=== PATIENT | female | born 1990 | race Caucasian/White ===

== ENCOUNTER 2016-07-16 11:09 | Emergency (ER) | payer OTHER ==
[~2016-07-16] VITALS: Ht 175.3 cm; Wt 55.5 kg
[~2016-07-16 11:09] MED LIST: Docusate Sodium PO; FERR-74 PO; Hydrocodone/Acetaminophen PO; IBUP-1827 PO; Ibuprofen PO; MISO200T VAGINAL
[2016-07-16 11:24] VITALS: BP 107/73; PULSE 68; RESP 16; O2SAT 98
[2016-07-16] MEDS ORDERED: CITA10TA14 PO (11:28)
[2016-07-16] MEDS ORDERED: PREN-12 PO (11:28)
--- NOTE | 2016-07-16 11:57 | ED.REPORT ---
HPI-Headache Date of Service Jul 16, 2016 ED Provider: Doc,Ed MD History of Present Illness: blurry vision that comes and goes. blood pressure was low did not feel like she was going to pass out. checked at 1045. headache this am. off and on. [facility] is primary care. no vomiting. ate last night. 09/13 usually takes ibuprofen took 2 at 1030. blurriness last about 45 minutes, more on the left, feels it was split in the middle, noticed when reading, could not see the letters to read. no hx of ms. no stumbling or falls lately. Nursing Notes Stated Complaint: LOW BLOOD PRESSURE/HEADACHE Chief Complaint: Headache Nursing Notes Reviewed: Yes Allergies: Coded Allergies: Penicillins (Verified Allergy, Intermediate, rash, 12/14/15) had med once as child amoxicillin (Verified Allergy, Intermediate, rash, 07/16/16) Scheduled Citalopram Hydrobromide (Celexa) 10 Mg Tablet 10 MG PO DAILY Vit W-Ca,Fe,FA(<1 mg) ( Formula) 1 Each Tablet 1 EACH PO DAILY General Time Seen by MD: 11:56 Chief Complaint Headache Hx Obtained From: Patient Sudden in Onset?: No Past Medical History Past Medical History Reports: Asthma (last used albuterol a few months ago) Past Surgical History None reported Smoking History Never Smoker Social History Alcohol Use: "Social" Drug Use: Denies drug use Occupation living with parents, in the middle of a divorce 07/16/2016. Work for the school district Ambulatory Status Independent Review of Systems Basic Review of Systems Respiratory: No shortness of breath, No cough, No wheeze Hematologic: No bleeding, No bruising Allergy / Immune: No allergy Physical Exam Initial Vital Signs Vital Signs (First) Date Time Temp Pulse Resp B/P Pulse Ox O2 Delivery O2 Flow Rate FiO2 07/16/16 11:24 36.4 68 16 107/73 98 Room Air Initial VS: Reviewed, Vital signs normal ENT: Mucous membranes moist, Conjunctiva normal, No scleral icterus Back: No CVA tenderness Psychiatric: Mood/affect normal, Behavior normal, Normal thought content General/Constitutional: Awake, Alert, No acute distress, Well appearing, Well developed, Well hydrated, Well nourished, Cooperative, Not toxic appearing Head / Eyes: Atraumatic, Normocephalic, PERRL, EOMI, No nystagmus, No periorbital redness, Visual acuity NL pressures are at 17 Neck: Atraumatic, Supple, No meningismus, Full range of motion Neurologic: Oriented X3, Speech NL, No motor deficits, No sensory deficits, CN II - XII intact, Reflexes equal bilat, Cerebellar NL, Memory NL, Gait NL Respiratory / Chest: Atraumatic, Breath sounds NL, Breath sounds = bilat, No respiratory distress Cardiovascular: Heart rate NL, Regular rhythm, Heart sounds NL, No gallop Abdomen: Atraumatic, Soft, Non-tender, McBurney's non-tender Interpretation & Diagnostics Lab Results Interpretation Result Diagram: 07/16/16 1235 07/16/16 1235 Test 07/16/16 12:35 07/16/16 14:00 White Blood Count 4.1th/mm3 (3.8-10.1) Red Blood Count 3.70mil/mm3 (3.90-5.20) Hemoglobin 11.5g/dL (12.0-15.6) Hematocrit 36.0% (35.0-46.0) Mean Corpuscular Volume 97.3fL (81-100) Mean Corpuscular Hemoglobin 31.1pg (27.0-35.0) Mean Corpuscular Hemoglobin Concent 31.9% (32.0-37.0) Red Cell Distribution Width 12.7% (12.3-15.4) Platelet Count 200bil/L (150-400) Neutrophils (%) (Auto) 43.1% (40-74) Lymphocytes (%) (Auto) 43.2% (14-46) Monocytes (%) (Auto) 8.8% (4-12) Eosinophils (%) (Auto) 4.4% (0-5) Basophils (%) (Auto) 0.5% (0-3) Sodium Level 140mEq/L (134-144) Potassium Level 4.1mEq/L (3.5-5.2) Chloride Level 101mEq/L (97-108) Carbon Dioxide Level 26mmol/L (18-29) Blood Urea Nitrogen 9mg/dL (6-20) Creatinine 0.56mg/dL (0.57-1.00) Estimat Glomerular Filtration Rate 185mL/min (>59) Glucose Level 87mg/dL (60-99) Calcium Level 9.2mg/dL (8.5-10.1) Total Bilirubin 0.5mg/dL (0.0-1.2) Aspartate Amino Transf (AST/SGOT) 23U/L (0-50) Alanine Aminotransferase (ALT/SGPT) 20U/L (0-32) Alkaline Phosphatase 42U/L (25-150) Total Protein 6.8g/dL (6.4-8.4) Albumin 4.3g/dL (3.4-5.0) Hold Urine Received (Received) CT Head Interpretation PROCEDURE: CT BRAIN WITHOUT CONTRAST ([id number]) INDICATIONS: blurry vision TECHNIQUE: Noncontrast 4.5 mm thick angled axial sections acquired from the foramen magnum to the vertex, with coronal reformats. COMPARISON: None. FINDINGS: Image quality: Excellent. CSF spaces: Basal cisterns are patent. No extra-axial fluid collections. Ventricles are normal in size and shape. Brain: No midline shift. No intracranial masses or hemorrhage. Terrazas-white matter interface is normal. Skull and face: Calvarium and visualized facial bones are intact, without suspicious lesions. Sinuses: Visualized sinuses and mastoids are clear. IMPRESSION: No acute intracranial findings. Dictated by: Vicky Hoffman M.D. on 07/16/2016 at 12:36 Re-Eval/Medical Decision Med Decision/Clinical Course 26 year old female present for headache associated with 2 episodes of blurry vision which has resolved. Visual acuity is 20/16, pressures are at 17. CT is normal. patient has no hx of MS and no problems with gait. patient does not have diabetes at this time but does have a family hx of DM. No evidence of dissection at this time. Patient with good relief of her pain with toradol. discussed differential and encouraged follow up Discharge & Departure Impression: Primary Impression: Headache Headache type: tension-type Additional Impression: Blurry vision Disposition: Home Patient Instructions: Acute Headache (ED) Additional Instructions: Your labs are all normal. The head CT is normal. The pain has decreased with toradol. Your visual acuity is normal at this time. The pressure is normal. Please make an appointment with ophthalmology to have a more complete eye exam conducted. You also need to see Dr. Sanchez. The causes for blurry vision is very wide from multiple sclerosis to an ocular migraine. The causes need to be ruled out. Referrals: Amelie Sanchez MD (PCP) EDSupervising Provider for [facility]: Cody Gao MD copies to: Amelie Sanchez MD, Sue ARNP Jul 16, 2016 11:57
[2016-07-16] MEDS ORDERED: 0.9% Sodium Chloride 1,000 ML IV ONE (12:10)
[2016-07-16] MEDS ORDERED: Dexamethasone Inj 10 MG in 0.9% Sodium Chloride-Pha MIX 50 ML IV ONE (12:10)
--- NOTE | 2016-07-16 12:38 | DRSVH ---
PROCEDURE: CT BRAIN WITHOUT CONTRAST ([id number]) INDICATIONS: blurry vision TECHNIQUE: Noncontrast 4.5 mm thick angled axial sections acquired from the foramen magnum to the vertex, with c oronal reformats. COMPARISON: None. FINDINGS: Image quality: Excellent. CSF spaces: Basal cisterns are patent. No extra-axial fluid collections. Ventricles are normal in size and shape. Brain: No midline shift. No intracranial masses or hemorrhage. Terrazas-white matter interface is norm al. Skull and face: Calvarium and visualized facial bones are intact, without suspicious lesions. Sinuses: Visualized sinuses and mastoids are clear. IMPRESSION: No acute intracranial findings. Dictated by: Vicky Hoffman M.D. on 07/16/2016 at 12:36 Approved by: Vicky Hoffman M.D. on 07/16/2016 at 12:37
[2016-07-16 12:59] LABS: BASOPHILS % (AUTO) 0.5 % (0-3); EOSINOPHILS % (AUTO) 4.4 % (0-5); MONOCYTES % (AUTO) 8.8 % (4-12); Mean Corpuscular Hemoglobin 31.1 pg (27.0-35.0); Mean Corpuscular Volume 97.3 fL (81-100); NEUTROPHILS % (AUTO) 43.1 % (40-74); Platelet Count 200 bil/L (150-400)
[2016-07-16] MEDS ORDERED: Tetracaine 0.5% 4 mL Ophthalmic Solution BOTH_EYES ONE (13:35)
[2016-07-16 14:12] VITALS: BP 88/54; PULSE 67; O2SAT 98
[2016-07-16 15:00] VITALS: BP 96/63
[2016-07-16 15:01] VITALS: BP 96/63; PULSE 67; RESP 16; O2SAT 98
== END 2016-07-16 14:22 | disposition home or self-care (01) ==
LOC: SED 11:09
DX: G44.209 Tension-type headache, unspecified, not intractable (principal); J45.909 Unspecified asthma, uncomplicated; Z88.0 Allergy status to penicillin; Z88.1 Allergy status to other antibiotic agents
CPT/HCPCS: 36415; 70450; 80053; 81002; 81025; 85025; 96361; 96374; 96375; 99285; J1100; J1200; J1885; J7030